=== PATIENT | male | born 1965 | race Caucasian/White ===

== ENCOUNTER 2018-12-04 14:10 | Emergency (ER) | payer SELFPAY ==
[2018-12-04] MEDS ORDERED: HYDROcodone/Acetaminophen 10/325 mg Tablet ONE (14:19)
[2018-12-04] MEDS ORDERED: Tetracaine 0.5% OPHTH SOLN/PF 4 ML BOT ONE (14:25)
[2018-12-04] MEDS ORDERED: Adacel (T-DAP) 0.5 ML SYRINGE ONE (14:48)
== END 2018-12-04 15:05 | disposition home or self-care (01) ==
LOC: BURERS 14:10
DX: T26.11XA Burn of cornea and conjunctival sac, right eye, initial encounter (principal); T26.01XA Burn of right eyelid and periocular area, initial encounter; I25.2 Old myocardial infarction; Z23 Encounter for immunization; X11.8XXA Contact with other hot tap-water, initial encounter
CPT/HCPCS: 90471; 90715